=== PATIENT | male | born 1955 | race Asian ===

== ENCOUNTER 2017-10-29 22:58 | Emergency (ER) | payer OTHER ==
[2017-10-30] MEDS: HYDROCODONE/APAP (5/325) TAB PO (01:06)
[2017-10-30 02:34] LABS: ADD MAN DIFF? NO
[2017-10-30 02:36] LABS: BASOPHILS % 0.2 % (0.0-2.0); EOSINOPHILS % 0.5 % (0.0-7.0); HEMOGLOBIN 12.9 g/dl (14.0-18.0); LYMPHOCYTES % 16.2 % (15.0-51.0); MEAN CORPUSCULAR HGB CONC 33.1 g/dl (32.0-37.0); MEAN CORPUSCULAR VOLUME 87.6 fl (82.0-101.0); MEAN PLATELET VOLUME 8.7 fl (7.4-10.4); MONOCYTES % 16.6 % (0.0-11.0); NEUTROPHIL # 3.9 10^3/ul (1.6-7.5); NEUTROPHILS % 66.5 % (39.0-77.0); PLATELET COUNT 153 10^3/UL (140-415); RED BLOOD COUNT 4.45 10^6/ul (4.70-6.10); RED CELL DISTRIBUTION WIDTH 12.8 % (11.5-14.5)
[2017-10-30 02:36] LABS: WHITE BLOOD COUNT 5.9 10^3/ul (4.8-10.8)
[2017-10-30 02:56] LABS: INR 1.08; PROTIME 14.1 Sec (11.9-14.9); PT RATIO 1.1
[2017-10-30 02:57] LABS: PARTIAL THROMBOPLASTIN TIME 30.6 Sec (25.0-35.0)
[2017-10-30 03:04] LABS: ANION GAP 13 (8-16); BLOOD UREA NITROGEN 16 mg/dl (7-20); CALCIUM 8.9 mg/dl (8.4-10.2); CARBON DIOXIDE 27 mmol/L (21-31); CHLORIDE 102 mmol/L (97-110); CREATININE 1.41 mg/dl (0.61-1.24); GLUCOSE 112 mg/dl (70-220); POTASSIUM 4.7 mmol/L (3.5-5.1); SODIUM 137 mmol/L (135-144)
[2017-10-30] MEDS: SOD CHLORIDE 0.9% 1,000 ML IV (03:13)
== END 2017-10-30 06:00 | disposition home or self-care (01) ==
LOC: FTE 22:58 → E/R 10-30 06:00
DX: J01.90 Acute sinusitis, unspecified (principal); I10 Essential (primary) hypertension
CPT/HCPCS: 36415; 70450; 80048; 85025; 85610; 85730; 93005; 99285-25

== ENCOUNTER 2017-12-29 06:07 | Day surgery (SDC) | payer OTHER ==
[2017-12-29] MEDS: BUPIVACAINE 0.25% (MPF) 30 ML INJ
[~2017-12-29 06:07] MED LIST: SOD CHLORIDE 0.9% 1,000 ML IV
[2017-12-29] MEDS ORDERED: LIDOCAINE 2% (SDV) 5 ML INJ (07:00)
[2017-12-29] MEDS ORDERED: SUCCINYLCHOLINE CHLORIDE 100 MG/5 ML SYG IV ×2 (07:00→15:18)
[2017-12-29] MEDS ORDERED: CEFAZOLIN 1 GM INJ (07:00)
[2017-12-29] MEDS ORDERED: FENTAnyl 50 MCG/ML VIAL (14:35)
[2017-12-29] MEDS ORDERED: ROPIVACAINE 0.5 % 30 ML VIAL (14:37)
[2017-12-29] MEDS ORDERED: EPHEDrine SULFATE 50 MG/5 ML SYG (14:39)
[2017-12-29] MEDS: CEFAZOLIN 2 GM/50 ML (PMX) 50 ML IVPB (14:55)
[2017-12-29] MEDS ORDERED: PROPOFOL 20 ML (15:18)
[2017-12-29] MEDS ORDERED: ROCURONIUM 50 MG INJ (15:18)
[2017-12-29] MEDS ORDERED: SUGAMMADEX SODIUM 200 MG/2 ML VIAL IV (15:19)
[2017-12-29] MEDS: FENTAnyl 50 MCG/ML VIAL IV (15:58)
[2017-12-29] MEDS: HYDROmorphONE 0.5 MG/0.5 ML SYG IV (15:59)
[2017-12-29] MEDS: HYDROCODONE/APAP (5/325) TAB PO (16:03)
== END 2017-12-29 17:45 | disposition home or self-care (01) ==
LOC: SDS 06:07
DX: K80.20 Calculus of gallbladder without cholecystitis without obstruction (principal); I10 Essential (primary) hypertension
CPT/HCPCS: 47562; 88304